=== PATIENT | female | born 1965 | race American Indian/Alaskan Native ===

== ENCOUNTER 2019-11-30 15:33 | Outpatient (CLI) | payer BC | END 2019-11-30 15:34 | disposition home or self-care (01) | LOC: LABHHL 15:33 | PROVIDERS: ATTEND Obstetrics & Gynecology | DX: N95.0 Postmenopausal bleeding (principal) | CPT/HCPCS: 88305 ==

== ENCOUNTER 2020-01-10 06:33 | Observation (INO) | payer BC ==
[2020-01-07 10:39] LABS: Basophils # (Auto) 0.1 K/mm3 (0.0-0.1); Basophils % (Auto) 0.8 % (0.0-1.8); Eosinophils # (Auto) 0.2 K/mm3 (0.0-0.4); Eosinophils % (Auto) 3.2 % (0.0-4.3); Hematocrit 45.1 % (30.3-42.9); Hemoglobin 14.8 gm/dl (10.1-14.3); Lymphocytes # (Auto) 2.1 K/mm3 (1.2-5.4); Lymphocytes % (Auto) 33.9 % (13.4-35.0); Mean Corpuscular HGB Conc 33 % (30-34); Mean Corpuscular Volume 87 fl (79-97); Monocytes # (Auto) 0.5 K/mm3 (0.0-0.8); Monocytes % (Auto) 8.2 % (0.0-7.3); Platelet Count 448 K/mm3 (140-440); Red Blood Count 5.18 M/mm3 (3.65-5.03); Red Cell Distribution Width 15.1 % (13.2-15.2)
--- NOTE | 2020-01-07 10:41 | History and Physical Report ---
History of Present Illness Date of examination: 01/07/20 History of present illness: Patient has been reassessed/reevaluated. H&P has been reviewed. No interval changes. This is a 54 years old who presents with menstrual disorder. The symptoms began1 month ago. Patient states her last normal menses was in 2018 She was seen in [facility] and diagnosed with ovarian cyst. She complains of heavy bleeding, lack of menses, dysmenorrhea and clotting, but denies irregular menses, mid-cycle spotting, history of ovarian cysts, history of thyroid disease, history of fibroids, history of PCOS, history of bleeding disorder, lightheadedness, fatigue and cramping. Patient's work up has included hysterosonogram which revealed no abnormalities and benign endometrial biopsy. Patient's symptoms when present disrupts her normal daily activities Patient desires definitive treatment Vital Signs: Patient Profile: 54 Years Old Female Height: 68 inches Weight: 204 pounds BMI: 31.01 Temp: 97.8 degrees F BP sittin / 70 (left arm) Current Method of Contraception: None Date of Last Pap Smear: 11/26/2019 Past History : 8 Term Births: 2 Premature Births: 5 Living Children: 7 Para: 7 Mult. Births: 0 Prev : 0 Aborta: 1 Elect. Ab: 0 Spont. Ab: 1 Ectopics: 0 DESIGN DIRECTOR History Operations: [facility]sc Tubal Ligation (1993) Abnormal PAP: negative Uterine Anomaly: negative Infection History HIV Risk Eval: no Personal hx. of genital herpes: no Hx of STD: None Current Allergies (reviewed today): No known allergies Past Medical History: Neck Pain Hypertension Past Surgical History: Lsc Tubal Ligation (1993) Social History: Marital Status: Children: 7 Occupation: Medical eligibility Tech Smoking History: Patient currently smokes every day. Risk Factors: Smoked Tobacco Use: Current every day smoker Cigarettes: Yes -- 6 cigs per day,Smokeless Tobacco Use: Never Counseled to quit/cut down: yes Passive smoke exposure: no Drug use: no HIV high-risk behavior: no Caffeine use: 0 drinks per day Alcohol use: yes Type: occ Exercise: yes Times per week: 3 Seatbelt use: 100 % PAP Smear History: Date of Last PAP Smear: 11/26/2019 Review of Systems General Denies fever, chills, sweats, anorexia, fatigue, weakness, malaise, weight loss and sleep disorder. Complains of abnormal vaginal bleeding and hot flashes. Denies vaginal discharge, incontinence, dysuria, hematuria, urinary frequency, amenorrhea, menorrhagia, pelvic pain, genital sores, decreased libido, painful periods, painful sex, urinary urgency, vaginal dryness, vaginal itching and vaginal odor. CV Denies chest pains, palpitations, syncope, dyspnea on exertion, orthopnea, PND and peripheral edema. Resp Denies cough, dyspnea at rest, excessive sputum, hemoptysis, wheezing and pleurisy. GI Denies nausea, vomiting, diarrhea, constipation, change in bowel habits, abdominal pain, melena, hematochezia, jaundice, gas/bloating, indigestion/heartburn, dysphagia and odynophagia. Breast Denies left breast lump, right breast lump, nipple discharge, bloody discharge from nipple, breast pain, abnormal mammogram and breast enlargement. MS Neck pain Psych Denies depression, anxiety, irritability and mood swings. Past History Past Medical History: hypertension, other (SEE HPI FOR DETAILS) Past Surgical History: Other (SEE HPI FOR DETAILS) Social history: smoking, full code, other (SEE HPI FOR DETAILS) Medications and Allergies Allergies Allergy/AdvReac Type Severity Reaction Status Date / Time No Known Allergies Allergy Unverified 01/02/20 17:22 Home Medications Medication Instructions Recorded Confirmed Last Taken Type Lisinopril/Hydrochlorothiazide 1 tab PO QDAY 01/02/20 01/10/20 01/08/20 09:00 History [Zestoretic 20-12.5 mg] amLODIPine [Norvasc] 10 mg PO DAILY 01/02/20 01/10/20 01/08/20 20:00 History cloNIDine [Catapres] 0.2 mg PO QHS 01/02/20 01/10/20 01/08/20 20:00 History traZODone [Desyrel] 100 mg PO QHS 01/02/20 01/10/20 01/08/20 20:00 History Active Meds: Active Medications Cefazolin Sodium (Ancef/Sterile Water 2 Gm/20 Ml) 2 gm in 20 mls @ 80 mls/hr IV PREOP NR; Protocol Stop: 01/10/20 22:00 Exam - Physical Exam Narrative exam: HEENT: normocephalic, no lesions or deformities Chest: respiratory effort normal, clear to auscultation CV: regular, normal S1-S2, no murmur, no rub, no gallop Abdomen: Obese, normal bowel sounds, soft, nontender, no HSM Neuro: no gross anomalities Extremities: no clubbing, cyanosis, or edema DESIGN DIRECTOR Exams Vulva/Vagina: No lesions, normal BUS, normal rugae Cervix: No lesions; no cervical motion tenderness Uterus: unable to palpate due to obesity Adnexae: unable to palpate due to obesity Rectovaginal: exam defered Results - Labs CBC & Chem 7: 01/07/20 10:30 01/07/20 10:30 Assessment and Plan - Patient Problems (1) Post-menopausal bleeding Current Visit: No Status: Acute Plan to address problem: Diagnosis of post menopausal explained. Malignancy risk explained to patient. Lonnie bean's symptoms when present disrupts her normal daily activities Medical and surgical treatment options discussed Patient desires definitive treatment Patient desires hysterectomy Discussed risks and benefits of laparotomy, laparoscopy, vaginal and robotic assisted approaches for hysterectomies Patient desires robotic assisted total hysterectomy. Patient desires robotic assisted total hysterectomy. Consent reviewed and signed . The risks and alternatives for this surgery were reviewed with the patient. Discuss the risks of the surgery including infection, bleeding possibly heavy enough to require a blood transfusion, possible damage to bowel, bladder or ureter. Patient understand that this surgery with make her sterile.Patient understands if her ovaries are removed she will become menopausal. Also if unable to complete robitcally a laparotomy may be required. Patient understands and desires to proceed. (2) Hypertension Current Visit: No Status: Acute Qualifiers: Hypertension type: essential hypertension Qualified Code(s): I10 - Essential (primary) hypertension (3) Neck pain of over 3 months duration Current Visit: No Status: Acute (4) Smoker Current Visit: No Status: Acute
[2020-01-07 10:53] LABS: BUN/Creatinine Ratio 16; Blood Urea Nitrogen 13 mg/dL (7-17); Calcium 9.5 mg/dL (8.4-10.2); Hemolysis Index 1
--- NOTE | 2020-01-07 11:16 | Anesthesia Consultation ---
Anesthesia Consult and Med Hx Date of service: 01/10/20 - Airway Anesthetic Teeth Evaluation: Good ROM Head & Neck: Adequate Mental/Hyoid Distance: Adequate Mallampati Class: Class II Intubation Access Assessment: Probably Good - Pulmonary Exam CTA: Yes - Cardiac Exam Cardiac Exam: RRR - Pre-Operative Health Status ASA Pre-Surgery Classification: ASA2 Proposed Anesthetic Plan: General Nerve Block: TAP - Pulmonary Hx Smoking: Yes (<1/2PPD) Hx Respiratory Symptoms: No - Cardiovascular System Hx Hypertension: Yes Hx Heart Attack/AMI: No Hx Percutaneous Transluminal Coronary Angioplasty (PTCA): No Hx Cardia Arrhythmia: No - Central Nervous System CVA: No Hx Psychiatric Problems: No - Gastrointestinal Hx Gastroesophageal Reflux Disease: No - Endocrine Hx Renal Disease: No Hx Liver Disease: No Hx Insulin Dependent Diabetes: No Hx Non-Insulin Dependent Diabetes: No Hx Thyroid Disease: No - Other Systems Hx Substance Use: Yes (THC) Hx Obesity: Yes (BMI 31) - Additional Comments Anesthesia Medical History Comments: No prior GA. No FHx anesthetic complications.
[~2020-01-10 06:33] MED LIST: CELECOXIB 200 MG CAP PO NR; GABAPENTIN 300 MG CAP PO NR; LACTATED RINGERS 1,000 ML IV SCH; MIDAZOLAM 2 MG/2 ML INJ IV NR; fentaNYL 100 MCG/2 ML INJ IV PRN
[2020-01-10] MEDS ORDERED: ceFAZolin/Water 2 GM/20 ML 2 GM/20 ML SYRINGE IV NR (08:00)
[2020-01-10] MEDS ORDERED: dexAMETHasone 4 MG/ML VIAL ONE (08:02)
[2020-01-10] MEDS ORDERED: SODIUM CHLORIDE 0.9% 500 ML 500 ML ONE (08:02)
[2020-01-10] MEDS ORDERED: BUPIVACAINE-EPINEPHRINE/PF 0.5%-1:200,000 (30 ML) VIAL INFILTRATI ONE (08:02)
[2020-01-10] MEDS ORDERED: ROCURONIUM 50 MG/5 ML INJ IV ONE (08:16)
[2020-01-10] MEDS ORDERED: propofoL 200 MG/20 ML VIAL IV ONE (08:17)
[2020-01-10] MEDS ORDERED: fentaNYL 100 MCG/2 ML INJ ONE (08:17)
[2020-01-10] MEDS ORDERED: NEOMY 40 MG/POLYMYXIN B 200,000 UNITS/ML (GU) AMPULE IR ONE ×2 (08:22→09:43)
--- NOTE | 2020-01-10 08:36 | Anesthesia Day of Surgery ---
Anesthesia Day of Surgery - Day of Surgery Patient Examined: Yes Patient H&P Reviewed: Yes Patient is NPO: Yes
[2020-01-10] MEDS ORDERED: ONDANSETRON 4 MG/2 ML INJ ONE (08:42)
[2020-01-10] MEDS ORDERED: LIDOCAINE MPF (2%) 20 MG/1 ML VIAL 5 ML ONE (08:42)
[2020-01-10] MEDS ORDERED: KETOROLAC 30 MG/1 ML INJ ONE (08:42)
[2020-01-10] MEDS ORDERED: dexAMETHasone 20 MG/5 ML VIAL ONE (08:42)
[2020-01-10] MEDS ORDERED: SODIUM CHLORIDE 0.9% IRR 1,500 ML BOTTLE IR ONE (09:44)
[2020-01-10] MEDS ORDERED: SODIUM CHLORIDE 0.9% IRRIG SOLN 2000 ML IR ONE (09:44)
[2020-01-10] MEDS ORDERED: GLYCOPYRROLATE 0.4 MG/2 ML INJ ONE (10:33)
[2020-01-10] MEDS ORDERED: NEOSTIGMINE 10MG/10 ML INJ MDV ONE (10:33)
--- NOTE | 2020-01-10 10:59 | Short Stay Summary ---
Short Stay Documentation Date of service: 01/10/20 - History Past Medical History: hypertension, other (SEE HPI FOR DETAILS) Past Surgical History: Other (SEE HPI FOR DETAILS) Social history: smoking, full code, other (SEE HPI FOR DETAILS) - Allergies and Medications Current Medications: Allergies No Known Allergies Allergy (Unverified 01/02/20 17:22) Home Medications Medication Instructions Recorded Confirmed Last Taken Type Lisinopril/Hydrochlorothiazide 1 tab PO QDAY 01/02/20 01/10/20 01/08/20 09:00 History [Zestoretic 20-12.5 mg] amLODIPine [Norvasc] 10 mg PO DAILY 01/02/20 01/10/20 01/08/20 20:00 History cloNIDine [Catapres] 0.2 mg PO QHS 01/02/20 01/10/20 01/08/20 20:00 History traZODone [Desyrel] 100 mg PO QHS 01/02/20 01/10/20 01/08/20 20:00 History Estradiol [Minivelle 0.025mg/24hr] 1 each TD 2XW #8 patch.tdsw 01/10/20 Unknown Rx Ibuprofen [Motrin 800 MG tab] 800 mg PO Q6H PRN #30 tablet 01/10/20 Unknown Rx oxyCODONE /ACETAMINOPHEN [Percocet 1 - 2 tab PO Q6HR PRN #20 tablet 01/10/20 Unknown Rx 5/325 mg] Active Medications Celecoxib (Celebrex) 200 mg PO PREOP NR Stop: 01/10/20 23:59 Last Admin: 01/10/20 07:00 Dose: 200 mg Documented by: Fentanyl (Sublimaze) 100 mcg IV ONCE PRN PRN Reason: sedation for nerve block Stop: 01/10/20 23:59 Last Admin: 01/10/20 08:03 Dose: 100 mcg Documented by: Gabapentin (Gabapentin) 600 mg PO PREOP NR Stop: 01/10/20 23:59 Last Admin: 01/10/20 07:00 Dose: 600 mg Documented by: Hydromorphone HCl (Dilaudid) 0.5 mg IV Q10MIN PRN PRN Reason: Pain , Severe (7-10) Stop: 01/10/20 17:00 Cefazolin Sodium (Ancef/Sterile Water 2 Gm/20 Ml) 2 gm in 20 mls @ 80 mls/hr IV PREOP NR; Protocol Stop: 01/10/20 22:00 Lactated Ringer's (Lactated Ringers) 1,000 mls @ 100 mls/hr IV DIRECT IVAN Stop: 01/10/20 23:59 Last Admin: 01/10/20 07:00 Dose: 100 mls/hr Documented by: Midazolam HCl (Versed) 2 mg IV PREOP NR Stop: 01/10/20 23:59 Last Admin: 01/10/20 08:03 Dose: 2 mg Documented by: - Physical exam General appearance: no acute distress Integumentary: no rash HEENT: Atraumatic Lungs: Normal air movement Breasts: deferred Heart: Regular rate Gastrointestinal: hypoactive bowel sounds, tenderness (Appropriate postop), distended (Appropriate day of surgery), no guarding, other (Incisions intact) Female Genitourinary: deferred Rectal Exam: deferred Extremities: Full ROM Neurological: Normal speech, Strength at 5/5 X4 ext, Normal tone - Brief post op/procedure progress note Date of procedure: 01/10/20 (See operative note for details) - Hospital course Hospital course: Patient was admitted underwent the above him procedure without any complications. Patient was admitted and underwent above procedure without complications. Her post operative extended recovery observation course was benign she was afebrile throughout. Patient had no orthostatic symptoms. Patient was tolerating regular diet and voiding without difficulty at time of discharge. Patient incision was healing well without evidence of infection. Patient will be discharged with follow-up in office in 1-2 weeks for postop check - Disposition Condition at discharge: Good Disposition: DC-01 TO HOME OR SELFCARE - Discharge Diagnoses (1) Post-menopausal bleeding Status: Acute (2) Hypertension Status: Acute Qualifiers: Hypertension type: essential hypertension Qualified Code(s): I10 - Essential (primary) hypertension (3) Neck pain of over 3 months duration Status: Acute (4) Smoker Status: Acute Short Stay Discharge Plan Activity: advance as tolerated Diet: regular Wound: open to air Additional Instructions: Patient instructed no heavy lifting for 4 weeks. No intercourse for 8 weeks. Call office for fever, chills, nausea, vomiting or pain not controlled by pain medications. Ambulation is encouraged. Patient's call for heavy vaginal bleeding. Patient instructed to keep her scheduled post operative office appointment. Follow up with: AMIRAH RAHMAN MD [Primary Care Provider] - 7 Days Prescriptions: Estradiol [Minivelle 0.025mg/24hr] 1 each TD 2XW #8 patch.tdsw Ibuprofen [Motrin 800 MG tab] 800 mg PO Q6H PRN #30 tablet PRN Reason: Pain oxyCODONE /ACETAMINOPHEN [Percocet 5/325 mg] 1 - 2 tab PO Q6HR PRN #20 tablet PRN Reason: Pain
--- NOTE | 2020-01-10 10:59 | Operative Report ---
Operative Report Operative Report: Date of procedure: January 10, 2020 Pre-operative diagnosis: Postmenopausal bleeding Post-operative diagnosis: Same Procedure name(s):Robotic Assisted Total Hysterectomy with bilateral salpingo- oophorectomy Surgeon: Philip Hogan MD Road Manager: MAGAN Hammer Anesthesia: General EBL: Minimal Complications: None Findings: Uterus approximately 6 to 8 weeks in size normal-appearing adnexa Specimen(s): Uterus with cervix and bilateral adnexa Procedure: Patient was brought to the operating room where general anesthesia was induced without difficulty. Patient was placed in the dorsal lithotomy position. Prepped and draped in the usual sterile manner for robotic procedure. Menchaca catheter was placed without difficulty. Speculum was placed in the vagina. A medium V-Care Uterine manipulator was placed without difficulty. Attention was now switched to the patient's abdomen. A vertical supra-umbilicus incision was made with a scalpel. A 10-12 trocar was placed in this incision under direct visualization. Intra-abdominal placement was verified with no evidence of internal organ damage. The patient pelvic findings were noted as above. It was determined that the patient was a candidate for robotic procedure. On both sides the umbilical incision at about 8 cm, incisions were made for robotic trocars. Each robotic trocar was placed under direct visualization with no evidence of internal organ damage. One 5 mm trocar was placed 2 fingerbreadths above the right iliac crest. A 5 mm camera was placed in the right lower quadrant trocar, the 10-12 trocar was removed and a Angel Catalan laparoscopic port closure device was placed through this incision under direct visualization with no evidence of internal organ damage. The 10-12 trocar was then replaced into this port. At this time the patient was placed in extreme Trendelenburg. The da Darlyn robot was then docked on the patient's left side. The trocars connected to the robot appropriately robotic instruments were placed under direct visualization no evidence of internal organ damage.. At this time I took my place under the robotic operating tracy. Starting on the patient's right side the ureter was identified and found to be out of the operative field. Using the robotic vessel sealer ovarian vessels were cauterized and cut. Starting from the distal end of the fallopian tube the mesosalpinx was cauterized and cut. Next reaching the utero-ovarian complex it was then cauterized and cut. This was followed by cauterizing and cutting the right round ligament. The broad ligament was then opened. The bladder flap was formed anteriorly. The posterior broad ligament was then excised. The uterine vessels were skeletonized. The ureter was clearly seen out of the operative field. The bladder was pushed away from the anterior uterus. The right uterine vessels were then cauterized and cut. Attention was then switched to the patient's left side. The same procedure was repeated on the left side with performing cauterizing and cutting the left ovarian vessels, followed by is olating the uterine vessels cauterized and cutting and completing the bladder flap from the left side. At this time the uterus was appearing very cyanotic. After inspecting the bladder flap to insured no evidence of bladder injury, the colpotomy was then started. Incision started at 6:00 until the V-Care could be seen. This incision was extended from 6:00 to 9:00. Then from 6:00 to 3:00. Then from 9:00 to 12:00. This incision was extended from 3:00 to 12:00. At this time colpotomy was complete with no evidence of adjacent organ damage. The nurseryman assistant remove the uterus from through the colpotomy site. The vaginal cuff was irrigated and cauterized and found to be hemostatic. The cuff was closed with roboticly using 0 V- Lock suture. This closure was hemostatic after irrigation and Bovie. All pedicles were inspected and found to be hemostatic. The ureters were identified bilaterally and found to be functioning normal. The patient had clear urine in the Menchaca catheter with no evidence of mixture with blood. Hong was placed on the cuff and pedicles for postoperative hemostasis . All instruments were then removed. The large trocar sites were closed in layers 2-0 Vicryl and 4-0 Monocryl. The smaller incisions were closed subcuticularly with 4-0 Monocryl. Dermabond was placed over the skin incisions. The patient tolerated procedure well. She was awakened in the operating room and accompanied to the recovery room in good condition.
[2020-01-10] MEDS ORDERED: LACTATED RINGERS 1,000 ML ONE (11:49)
[2020-01-10] MEDS: HYDROmorphone 1 MG/1 ML INJ IV PRN ×2 (11:57→12:10)
[2020-01-10] MEDS ORDERED: HYDROcodone/ACETAMINOPHEN 5-325 MG TAB PO PRN (13:30)
[2020-01-10] MEDS ORDERED: ONDANSETRON 4 MG/2 ML INJ IV PRN (13:30)
[2020-01-10] MEDS ORDERED: MAGNESIUM HYDROXIDE (MOM) ORAL LIQD UDC PO PRN (13:30)
[2020-01-10] MEDS ORDERED: D5W/LACTATED RINGERS 1,000 ML IV SCH (13:30)
[2020-01-10] MEDS ORDERED: ESTRADIOL 0.1 MG/24 HR PATCH WEEKLY TD NR (13:30)
[2020-01-10] MEDS ORDERED: ACETAMINOPHEN 325 MG TAB PO PRN (13:30)
[2020-01-10] MEDS ORDERED: ceFAZolin/NS 1 GM/50 ML 1 GM/50 ML BAG IV SCH (14:00)
[2020-01-10] MEDS ORDERED: KETOROLAC 30 MG/1 ML INJ IV SCH (14:00)
[2020-01-10 15:23] VITALS: BP 115/73
--- NOTE | 2020-01-10 16:05 | Post Anesthesia Evaluation ---
- Post Anesthesia Evaluation Patient Participated: Yes Airway Patent: Yes Stable Respiratory Function: Yes Nausea/Vomiting: No Temp > 96.8F: Yes Pain Manageable: Yes Adequeate Hydration: Yes Anesthesia Complications: No
--- NOTE | 2020-01-10 17:16 | Event Note ---
Date: 01/10/20 Day of surgery. Discuss operative findings with patient and her all questions answered. Patient without fever. Patient denies any nausea vomiting and has voided on her own. Will ambulate in halls this evening. Good urine output. We will continue routine postoperative care. Patient desires discharge this evening will ambulate in halls make sure she is tolerating regular diet everything stable she is afebrile she is in go home this evening.
[2020-01-10] MEDS ORDERED: ESTRADIOL 0.1 MG/24 HR PATCH WEEKLY TD ONE (17:31)
[2020-01-10] MEDS ORDERED: DOCUSATE SODIUM 100 MG CAP PO SCH (22:00)
[2020-01-10] MEDS ORDERED: cloNIDine 0.2 MG TAB PO SCH (22:00)
[2020-01-11] MEDS ORDERED: amLODIPine 10 MG TAB PO SCH (10:00)
[2020-01-11] MEDS ORDERED: NON-FORMULARY EACH (Lisinopril/Hydrochlorothiazide [Zestoretic 20-12.5 Mg] 1 TAB) PO SCH (10:00)
[2020-01-11] MEDS ORDERED: hydroCHLOROthiazide 12.5 MG CAP PO SCH (10:00)
[2020-01-11] MEDS ORDERED: LISINOPRIL 20 MG TAB PO SCH (10:00)
== END 2020-01-10 18:51 | disposition home or self-care (01) ==
LOC: OR 06:33 → OB 11:00
PROVIDERS: ADMIT Obstetrics & Gynecology; ATTEND Obstetrics & Gynecology
DX: N95.0 Postmenopausal bleeding (principal); Z20.828 Contact with and (suspected) exposure to other viral communicable diseases; I10 Essential (primary) hypertension; M54.2 Cervicalgia; F17.200 Nicotine dependence, unspecified, uncomplicated; Z79.899 Other long term (current) drug therapy
CPT/HCPCS: 36415; 58571; 64450; 80048; 85025; 86850; 86900; 86901; 88307; 96361; 96365; 96375; A4217; G0378; J0690; J1100; J1170; J1885; J2250; J2405; J2704; J2710; J3010; J7040; J7120; J7121; S2900; U0003

== ENCOUNTER 2020-06-13 06:59 | Outpatient (CLI) | payer BC ==
--- NOTE | 2020-06-13 10:05 | Magnetic Resonance Report ---
MR cervical spine wo con INDICATION / CLINICAL INFORMATION: 54 years Female; MAIN. TECHNIQUE: Multisequence, multiplanar images of the cervical spine were obtained. COMPARISON: None available. FINDINGS: CRANIOCERVICAL JUNCTION:No significant abnormality. ALIGNMENT: Minimal kyphosis of the cervical spine seen, centered about the C4-5 level. Mild scoliosis of the cervicothoracic region noted. VERTEBRAE:Mild loss of height seen at C5 and C6-findings appear to be on a chronic degenerative basis . Minimal Modic type I endplate changes seen at C6-7. Presumed hemangioma seen at T3, which should be of no clinical significance. VISUALIZED SPINAL CORD: See below. INTERVERTEBRAL DISCS: Multilevel disc desiccation noted. Narrowing seen from C3-4 through C5-6. [id number] ANALYSIS: C2-3: No significant abnormality. C3-4: Mild disc bulge and moderately sized left paracentral/lateral recess disc protrusion. There may be a discal cyst at the infrapedicular level of C3 extending into the medial foraminal region as wel l. There is flattening of the left anterior hemicord. There may be subtle cord edema on the left at t his level. Mild foraminal narrowing bilaterally from uncinate hypertrophy. Mild facet hypertrophy on the left. C4-5: Broad-based right paracentral disc protrusion. There is flattening of the right anterior hemico rd. Mild foraminal narrowing on the right from uncinate hypertrophy and/or disc disease. C5-6: Mild disc bulge. Minimal flattening of the cervical cord. No impingement. Mild to moderate fora cristopher narrowing on the left from uncinate hypertrophy. C6-7: Mild disc bulge. Mild foraminal narrowing bilaterally from uncinate hypertrophy. C7-T1: Minimal uncinate hypertrophy bilaterally without significant sequela. PARASPINAL SOFT TISSUES: No significant abnormality. ADDITIONAL FINDINGS: None. IMPRESSION: 1. Degenerative changes of the cervical spine as described above. Most marked findings appear to be a t C3-4. Please correlate with dermatomal distribution of patient's symptoms, if present. Signer Name: Dhruv Newberry MD, III Signed: 06/13/2020 10:01 AM Workstation Name: [id number]
== END 2020-06-13 07:00 | disposition home or self-care (01) ==
LOC: MRI 06:59
PROVIDERS: ATTEND Anesthesiology Pain Medicine
DX: M47.813 Spondylosis without myelopathy or radiculopathy, cervicothoracic region (principal); M50.020 Cervical disc disorder with myelopathy, mid-cervical region, unspecified level; M48.02 Spinal stenosis, cervical region; M50.31 Other cervical disc degeneration, high cervical region; M50.221 Other cervical disc displacement at C4-C5 level; D18.09 Hemangioma of other sites
CPT/HCPCS: 72141

== ENCOUNTER 2020-08-13 14:58 | Outpatient (CLI) | payer BC ==
--- NOTE | 2020-08-13 18:25 | Ultrasound Report ---
US abdomen limited INDICATION / CLINICAL INFORMATION: LIVER ENZYMES ABNORMAL. COMPARISON: None available. FINDINGS: There is questionable thickening of the gallbladder wall in the region of the gallbladder fossa. The wall may be as thick as 10 mm. The liver is heterogeneous in appearance with focal echogenic areas po ssibly representing fatty infiltration. Common bile duct is normal measuring 6 mm. The pancreas, righ t kidney and aorta are normal. IMPRESSION: 1. Questionable thickening of the gallbladder wall in the region of the gallbladder fossa 2. Heterogeneous liver with focal fatty infiltration Signer Name: Grant Hudson MD FACR Signed: 08/13/2020 6:21 PM Workstation Name: [id number]
== END 2020-08-13 14:59 | disposition home or self-care (01) ==
LOC: US 14:58
PROVIDERS: ATTEND Family Medicine
DX: K76.0 Fatty (change of) liver, not elsewhere classified (principal)
CPT/HCPCS: 76705

== ENCOUNTER 2020-09-03 06:39 | Day surgery (SDC) | payer BC ==
[2020-09-03 09:45] LABS: Basophils # (Auto) 0.1 K/mm3 (0.0-0.1); Basophils % (Auto) 1.5 % (0.0-1.8); Eosinophils # (Auto) 0.2 K/mm3 (0.0-0.4); Eosinophils % (Auto) 3.5 % (0.0-4.3); Hematocrit 38.2 % (30.3-42.9); Hemoglobin 13.2 gm/dl (10.1-14.3); Lymphocytes # (Auto) 1.9 K/mm3 (1.2-5.4); Mean Corpuscular HGB Conc 34 % (30-34); Mean Corpuscular Volume 82 fl (79-97); Monocytes # (Auto) 0.5 K/mm3 (0.0-0.8); Monocytes % (Auto) 8.4 % (0.0-7.3); Platelet Count 348 K/mm3 (140-440); Red Blood Count 4.65 M/mm3 (3.65-5.03)
[2020-09-03 09:46] LABS: Red Cell Distribution Width 22.1 % (13.2-15.2)
--- NOTE | 2020-09-03 10:36 | Magnetic Resonance Report ---
MRI abdomen without contrast--MRCP INDICATION: ABNORMAL LFTS and elevated bilirubin. COMPARISON: Abdominal ultrasound from 08/13/2020 FINDINGS: Lung bases are clear. No acute osseous abnormality identified. ABDOMEN: There is significant circumferential gallbladder wall thickening with no internal stone dise ase identified. No appreciable intrahepatic or extrahepatic biliary ductal dilatation and no evidence of choledocholithiasis. The liver is mildly heterogeneous in appearance but the parenchyma otherwise appears unremarkable. Th ere is no liver lesion or enlargement and again no intrahepatic biliary ductal dilatation. The pancreas, adrenals, kidneys, and visualized GI tract appear unremarkable. IMPRESSION: 1. Severe circumferential gallbladder wall thickening/edema with no internal stone disease, biliary d uctal dilatation, or pericholecystic fluid. Chronic cholecystitis would be one differential considera tion. Edema related to underlying hepatic disease would be another consideration. 2. Slightly heterogeneous appearance of the liver which could be related to some degree of fatty infi ltration, otherwise unremarkable. Signer Name: Antione Bonds MD Signed: 09/03/2020 10:31 AM Workstation Name: [id number]
[2020-09-03] MEDS ORDERED: SODIUM CHLORIDE 0.9% 500 ML 500 ML ONE (10:46)
[2020-09-03] MEDS ORDERED: HYDROmorphone 1 MG/1 ML INJ IV SCH (11:00)
[2020-09-03] MEDS ORDERED: ONDANSETRON 4 MG/2 ML INJ IV SCH (11:00)
[2020-09-03] MEDS ORDERED: ACETAMINOPHEN 325 MG TAB PO ONE (12:30)
--- NOTE | 2020-09-03 13:10 | Cat Scan Report ---
CT-guided liver biopsy INDICATION : ABNORMAL LFTS. COMPARISON: MRI of the abdomen from today and ultrasound from 08/13/2020 PROCEDURE: The risks (including but not limited to bleeding and infection) and benefits were explain ed to the patient and informed consent was obtained. All CT scans at this location are performed usi ng CT dose reduction for MAYKELRA by means of automated exposure control. A time out procedure was performed. The procedure site was prepped and draped in the usual sterile f ashion and lidocaine was used for local anesthesia. Under direct CT guidance and utilizing an anterior oblique approach, a 19-gauge coaxial needle was ad vanced into the posterior hepatic segment. 3 separate 20-gauge biopsy samples were then obtained. The samples were placed directly in formalin and sent to pathology for further evaluation per the primar y team orders. An immediate postprocedure scan showed no complication. The patient tolerated the procedure well with no complications. IMPRESSION: Successful CT-guided liver biopsy. Signer Name: Antione Bonds MD Signed: 09/03/2020 1:05 PM Workstation Name: [id number]
[2020-09-03 15:11] VITALS: BP 92/58
== END 2020-09-03 14:30 | disposition home or self-care (01) ==
LOC: CATHLABREC 06:39 → MRI 06:39 → EDSTATUS 07:30 → CATHLABREC 14:30
DX: R94.5 Abnormal results of liver function studies (principal); I10 Essential (primary) hypertension; E66.9 Obesity, unspecified; F17.210 Nicotine dependence, cigarettes, uncomplicated; Z72.89 Other problems related to lifestyle; Z79.899 Other long term (current) drug therapy; Z98.890 Other specified postprocedural states; Z68.29 Body mass index [BMI] 29.0-29.9, adult
CPT/HCPCS: 47000; 74181; 77012; 85025; 88307; 88313; J1170; J2405; J7040

== ENCOUNTER 2021-04-29 13:35 | Outpatient (CLI) | payer BC ==
--- NOTE | 2021-04-29 15:46 | Magnetic Resonance Report ---
MRI RIGHT WRIST WITHOUT CONTRAST INDICATION: PAIN IN RIGHT ARM,CARPAL TUNNEL SYNDROME. TECHNIQUE: Multiplanar, multisequence MR images were obtained. COMPARISON: None available. FINDINGS: SCAPHOLUNATE LIGAMENT: No significant abnormality. LUNOTRIQUETRAL LIGAMENT: No significant abnormality. TRIANGULAR FIBROCARTILAGE COMPLEX: No significant abnormality. FLEXOR TENDONS: No significant abnormality. EXTENSOR TENDONS: No significant abnormality. DISTAL RADIUS AND ULNA: No significant abnormality. CARPAL BONES: No significant abnormality. JOINT SPACES: No significant arthritis. No significant joint effusion or synovitis. CARPAL TUNNEL / MEDIAN NERVE: No significant abnormality. GUYON'S (ULNAR) CANAL: No significant abnormality. SUBCUTANEOUS SOFT TISSUES: No significant abnormality. ADDITIONAL FINDINGS: None. IMPRESSION: 1. No significant abnormality. Signer Name: Neftaly Piper MD Signed: 04/29/2021 3:41 PM Workstation Name: [id number]
== END 2021-04-29 13:36 | disposition home or self-care (01) ==
LOC: MRI 13:35
PROVIDERS: ATTEND Orthopaedic Surgery
DX: M79.601 Pain in right arm (principal); G56.01 Carpal tunnel syndrome, right upper limb

== ENCOUNTER 2021-09-03 07:59 | Outpatient (CLI) | payer BC ==
--- NOTE | 2021-09-03 11:40 | Magnetic Resonance Report ---
MRI RIGHT FOREARM WITHOUT CONTRAST INDICATION / CLINICAL INFORMATION: PAIN IN RIGHT ARM, CARPAL TUNNEL SYNDROME - RIGHT UPPER LIMB. TECHNIQUE: Multiplanar, multisequence MR images were obtained. COMPARISON: MRI right wrist dated 04/29/21. FINDINGS: BONES: No significant bone marrow edema. No fracture. No osseous lesion. MUSCLES / TENDONS: Faint intramuscular increased T2 signal involving the pronator teres and flexor ca rpi radialis muscles of the forearm. No definitive denervation edema or muscle strain. SOFT TISSUES: No significant abnormality. VISUALIZED JOINTS: No significant abnormality. ADDITIONAL FINDINGS: None. IMPRESSION: 1. Nonspecific intramuscular T2 signal involving the pronator teres and flexor carpi radialis muscle s of the forearm. 2. No findings to suggest denervation injury. Carpal tunnel was not included on this examination. Report dictated by: Brant Prudy MD Report dictated on: 09/03/2021 9:58 AM I have reviewed the images, agree with this report, and edited this report as needed. Signer Name: Rj Johnson MD Signed: 09/03/2021 11:35 AM Workstation Name: [id number]
== END 2021-09-03 08:00 | disposition home or self-care (01) ==
LOC: MRI 07:59
PROVIDERS: ATTEND Orthopaedic Surgery
DX: G56.01 Carpal tunnel syndrome, right upper limb (principal)